=== PATIENT | female | born 1955 | race Caucasian/White ===

== ENCOUNTER 2017-06-25 12:30 | Day surgery (SDC) | payer BC ==
[2017-06-25 13:29] VITALS: TEMP 98.2; BMI 34.3
[2017-06-25] MEDS ORDERED: DEXAMETHASONE SOD PHOSPHATE/PF 10 MG/ML SDV ONE (14:12)
[2017-06-25] MEDS ORDERED: BUPIVACAINE HCL/PF (5 MG/ML) 30 ML VIAL IJ ONE (14:13)
[2017-06-25] MEDS ORDERED: MIDAZOLAM HCL 2 MG/2 ML SINGLE DOSE VIAL ONE (14:13)
[2017-06-25] MEDS ORDERED: PROPOFOL 20 ML ONE ×3 (14:46)
[2017-06-25] MEDS ORDERED: ONDANSETRON 4 MG/2 ML VIAL IVPUSH PRN ×2 (14:50→15:38)
[2017-06-25] MEDS ORDERED: oxyCODONE HCL 5 MG TABLET PO PRN ×3 (14:50→15:38)
[2017-06-25] MEDS ORDERED: LACTATED RINGERS SOLUTION 1,000 ML IV SCH (15:00)
[2017-06-25] MEDS ORDERED: PROMETHAZINE HCL 25 MG/1 ML VIAL IVPB PRN (15:38)
[2017-06-25 16:47] VITALS: BP 136/69; PULSE 76
--- NOTE | 2017-06-26 16:33 | OP ---
DATE OF OPERATION: 06/25/2017 PREOPERATIVE DIAGNOSIS: Left comminuted displaced interarticular displaced fracture. POSTOPERATIVE DIAGNOSIS: Left comminuted displaced interarticular displaced fracture. OPERATIVE PROCEDURE: 1. Open reduction internal fixation of left distal radius fracture with internal fixation of 3 or more fragments. 2. Left brachioradialis tenotomy. SURGEON: Willis Pollard M.D. BREAST TRIMMER: Yosi Holden ANESTHESIA: Regional. COMPLICATIONS: None. ESTIMATED BLOOD LOSS: Minimal. INDICATION FOR PROCEDURE: The patient is a 61-year-old female with the above findings indicated for operative treatment. Risks, benefits, and alternatives were discussed with patient at length, informed consent was obtained. PROCEDURE: After proper identification of the patient and correct operative site, patient was brought to the operating room and placed supine on the operating room table, all bony prominences well padded. Regional anesthesia and sedation was given. Intravenous antibiotics were given at the time the procedure was performed. Left upper extremity was prepped and draped in the usual sterile fashion. Well padded tourniquet was placed with a sterile prep. Esmarch bandage to exsanguinate the left upper extremity. Tourniquet inflated to 250 mmHg. Longitudinal incision made over the volar aspect of the wrist. Incision was taken sharply through skin with sharp and blunt dissection through subcutaneous tissues. Flexor carpi radialis tendon along with the contents of the carpal canal were bluntly and gently retracted ulnarly for the remainder of the procedure. Pronator quadratus was quite thin and divided longitudinally and elevated off the distal radius where a highly comminuted fracture was noted. This was reduced, but the pole of the brachioradialis did not allow the radial styloid fragments to be reduced. Therefore, brachioradialis tenotomy was performed in a subperiosteal fashion. The fragments were then able to be reduced in a satisfactory position, and held with an Acumed Acu-Loc plate with distal locking screws and proximal nonlocking screws. This provided secure, stable fixation of the fracture in satisfactory position, confirmed radiographically in multiple planes. Scaphoid lunate interval and distal radialis joints were stressed and found to be stable. Wound was irrigated with saline, repaired in layers using a 4-0 Vicryl and 4-0 Monocryl suture. Steri-Strips, sterile dressing and splint were placed. Patient was reversed from anesthesia, and brought to the recovery room in stable condition. She tolerated the procedure well. Agusto Fisher, social services assistant, was integral throughout the procedure. Procedure could not have been performed without a skilled operative social services assistant. WILLIS POLLARD M.D. ANTHONY/[id number]
== END 2017-06-25 16:51 | disposition home or self-care (01) ==
LOC: FASU 12:30
PROVIDERS: ATTEND Orthopaedic Surgery Hand Surgery
PROC: 0LN60ZZ Release Left Lower Arm and Wrist Tendon, Open Approach (ICD-10-PCS; 2017-06-25)
PROC: 0PSJ04Z Reposition Left Radius with Internal Fixation Device, Open Approach (ICD-10-PCS; principal; 2017-06-25 14:40)
DX: S52.532A Colles' fracture of left radius, initial encounter for closed fracture (principal); X58.XXXA Exposure to other specified factors, initial encounter; Y93.9 Activity, unspecified; Y92.9 Unspecified place or not applicable
CPT/HCPCS: 73110-TC-LR-FY